=== PATIENT | female | born 1950 | race Caucasian/White ===

== ENCOUNTER 2022-09-14 20:20 | Emergency (ER) | payer MEDICARE, OTHER ==
[~2022-09-14] VITALS: Ht 172 cm; Wt 79.0 kg
--- NOTE | 2022-09-14 20:41 | ED Chest Pain ---
General Chief Complaint: Chest Pain Stated Complaint: CHEST DISCOMFORT Source: patient Exam Limitations: no limitations History of Present Illness Date Seen by Provider: Sep 14, 2022 Time Seen by Provider: 20:29 Initial Comments Patient is a 72-year-old female who presents to the emergency department with a chief complaint of chest "discomfort" she points to the midsternal area. She denies any associated symptoms such as sweating, shortness of breath and nausea. The pain does not radiate. She was at rest at symptom onset. She states that she had a stress test about a year ago that was "normal". She does take medicine for hypertension and hypercholesterolemia. She is a non-smoker. No first-degree family relatives with early coronary disease. Nothing made the pain any worse, time has made it better to the point at which at this exam it is basically gone. She denies any recent trauma, illnesses. No fevers, congestion/URI symptoms. No cough. No abdominal pain. No extremity numbness, weakness tingling or swelling. She did take 2 full-strength aspirin prior to arrival. Onset of pain was between 530 and 6 PM. All other review of systems reviewed and negative except as stated. Timing/Duration: 1-3 hours (3h) Severity/Quality: mild, other ("discomfort") Location: substernal Radiation: no radiation Activities at Onset: rest Prior CP/Workup: stress test ASA po TREE FALLER: Yes NTG SL TREE FALLER: No Associated Symptoms: fatigue ("tired") Allergies and Home Medications Allergies Coded Allergies: nitrofurantoin (Unverified Allergy, Unknown, 09/14/22) Patient Home Medication List Home Medication List Reviewed: Yes Review of Systems Review of Systems Constitutional: see HPI EENTM: No Symptoms Reported Respiratory: No Symptoms Reported Cardiovascular: Chest Pain Gastrointestinal: No Symptoms Reported Genitourinary: No Symptoms Reported Musculoskeletal: no symptoms reported Skin: no symptoms reported Psychiatric/Neurological: No Symptoms Reported Endocrine: No Symptoms Reported All Other Systems Reviewed Negative Unless Noted: Yes Past Mfnzotk-Cowtch-Wcnwtp Hx Patient Social History Tobacco Use?: No Use of E-Cig and/or Vaping dev: No Substance use?: No Alcohol Use?: No Pt feels they are or have been: No Physical Exam Vital Signs Vital Signs - First Documented 09/14/22 20:21 Temp 36.9 Pulse 68 Resp 16 B/P (MAP) 141/66 (91) Pulse Ox 98 O2 Delivery Room Air Capillary Refill : Less Than 3 Seconds Height, Weight, BMI Height: '" Weight: lbs. oz. kg; BMI Method: General Appearance: No Apparent Distress, WD/WN HEENT: PERRL/EOMI Neck: Full Range of Motion, Normal Inspection Respiratory: Lungs Clear, Normal Breath Sounds, No Accessory Muscle Use, No Respiratory Distress Cardiovascular: Regular Rate, Rhythm, Normal Peripheral Pulses Gastrointestinal: Normal Bowel Sounds, Non Tender, Soft Extremity: Normal Inspection, Normal Range of Motion, Non Tender, No Calf Tenderness, No Pedal Edema Neurologic/Psychiatric: Alert, Oriented x3, No Motor/Sensory Deficits, Normal Mood/Affect, home care giver II-XII Norm as Tested Skin: Normal Color, Warm/Dry Progress/Results/Core Measures Results/Orders Lab Results Laboratory Tests Test 09/14/22 20:32 Range/Units White Blood Count 7.9 4.3-11.0 10^3/uL Red Blood Count 4.40 3.80-5.11 10^6/uL Hemoglobin 12.5 11.5-16.0 g/dL Hematocrit 38 35-52 % Mean Corpuscular Volume 86 80-99 fL Mean Corpuscular Hemoglobin 28 25-34 pg Mean Corpuscular Hemoglobin Concent 33 32-36 g/dL Red Cell Distribution Width 12.8 10.0-14.5 % Platelet Count 242 130-400 10^3/uL Mean Platelet Volume 9.2 9.0-12.2 fL Immature Granulocyte % (Auto) 0 % Neutrophils (%) (Auto) 51 42-75 % Lymphocytes (%) (Auto) 32 12-44 % Monocytes (%) (Auto) 12 0-12 % Eosinophils (%) (Auto) 5 0-10 % Basophils (%) (Auto) 1 0-10 % Neutrophils # (Auto) 4.0 1.8-7.8 10^3/uL Lymphocytes # (Auto) 2.5 1.0-4.0 10^3/uL Monocytes # (Auto) 0.9 0.0-1.0 10^3/uL Eosinophils # (Auto) 0.4 H 0.0-0.3 10^3/uL Basophils # (Auto) 0.1 0.0-0.1 10^3/uL Immature Granulocyte # (Auto) 0.0 0.0-0.1 10^3/uL Prothrombin Time 12.7 12.2-14.7 SEC INR Comment 0.9 0.8-1.4 Activated Partial Thromboplast Time 34 24-35 SEC Sodium Level 142 135-145 MMOL/L Potassium Level 4.0 3.6-5.0 MMOL/L Chloride Level 107 98-107 MMOL/L Carbon Dioxide Level 21 21-32 MMOL/L Anion Gap 14 5-14 MMOL/L Blood Urea Nitrogen 18 7-18 MG/DL Creatinine 0.80 0.60-1.30 MG/DL Estimat Glomerular Filtration Rate 79 BUN/Creatinine Ratio 23 Glucose Level 104 70-105 MG/DL Calcium Level 9.3 8.5-10.1 MG/DL Corrected Calcium 9.1 8.5-10.1 MG/DL Magnesium Level 2.2 1.6-2.4 MG/DL Total Bilirubin 0.6 0.1-1.0 MG/DL Aspartate Amino Transf (AST/SGOT) 18 5-34 U/L Alanine Aminotransferase (ALT/SGPT) 20 0-55 U/L Alkaline Phosphatase 118 40-136 U/L Troponin I < 0.028 <0.028 NG/ML Total Protein 7.5 6.4-8.2 GM/DL Albumin 4.2 3.2-4.5 GM/DL My Orders Orders - SANTOS HENDERSON MD Ekg Tracing (09/14/22 20:24) Cbc With Automated Diff (09/14/22 20:41) Magnesium (09/14/22 20:41) Chest 1 View, Ap/Pa Only (09/14/22 20:41) Comprehensive Metabolic Panel (09/14/22 20:41) Protime With Inr (09/14/22 20:41) Partial Thromboplastin Time (09/14/22 20:41) O2 (09/14/22 20:41) Monitor-Rhythm Ecg Trace Only (09/14/22 20:41) Ed Iv/Invasive Line Start (09/14/22 20:41) Troponin I Evita (09/14/22 20:41) Vital Signs/I&O 09/14/22 20:21 Temp 36.9 Pulse 68 Resp 16 B/P (MAP) 141/66 (91) Pulse Ox 98 O2 Delivery Room Air Progress Progress Note : Time: 21:29 Progress Note Patient seen and evaluated by me, 72-year-old with chest "discomfort". Evaluation today included physical exam, EKG, single view chest x-ray, CBC, Chem-12 with magnesium level, coags and troponin. Differential diagnosis includes ACS, GERD, PE. Based on history and physical exam and results low clinical suspicion for ACS, PE. Her EKG is normal sinus rhythm at [address] segment change. Chest x-ray is reviewed, unremarkable for infiltrate, effusion, widened mediastinum, bony abnormality. CBC is normal, chemistry including cardiac enzymes and coags are all normal. Patient would be heart score of 2 for risk factors. This puts her at low risk of Mace. As she has had discomfort for ongoing 3 hours and it is resolved with a normal work-up the patient is safe for discharged home. I have discussed the results with the patient and her who is at the bedside. She verbalized understanding and agreement with the plan of care. Return precautions are provided. Encouraged follow-up with her primary care provider. All questions are sought and answered. Patient stable for discharge Initial ECG Impression Date: Sep 14, 2022 Initial ECG Impression Time: 20:26 Initial ECG Rate: 75 Initial ECG Rhythm: Normal Sinus Initial ECG Intervals: Normal Initial ECG Impression: Normal Diagnostic Imaging Diagonstic Imaging: Xray Plain Films/CT/US/NM/MRI: chest Comments [facility]. [employer], [place] NAME: TENA JAMES [facility] REC#: [id number] PT STATUS: REG ER : 1950 PHYSICIAN: SANTOS HENDERSON MD ADMIT DATE: 09/14/22/ER Draft Date of Exam:09/14/22 CHEST 1 VIEW, AP/PA ONLY INDICATION: Chest pain. TECHNIQUE: Single view chest 8:43 PM. CORRELATION STUDY: None FINDINGS: The heart size, mediastinal configuration and pulmonary vascularity are within normal limits. The lungs are clear with no consolidating infiltrate. There is no significant effusion or pneumothorax. IMPRESSION: 1. Negative appearing single view chest. Dictated on workstation # [id number] Dict: 09/14/222103 Trans: 09/14/222104 DO [id number] Interpreted by: KARLI COTTO DO Electronically signed by: Departure Impression Primary Impression: Chest pain Qualified Codes: R07.9 - Chest pain, unspecified Disposition: 01 HOME, SELF-CARE Condition: Improved Departure-Patient Inst. Decision time for Depature: 21:32 Referrals: NO,LOCAL PHYSICIAN (PCP/Family) Primary Care Physician Patient Instructions: Chest Pain That Is Not Caused by the Heart (DC) Add. Discharge Instructions: Continue your daily medications as prescribed. If you have a return of chest pain especially with exertion and pain that has shortness of breath, nausea, sweating or radiating pain to the jaw, back, arms please return to the emergency room for reevaluation. Please follow-up with your primary care provider for further evaluation and work up as needed. SANTOS HENDERSON MD Sep 14, 2022 20:41
[2022-09-14 20:46] LABS: BASOPHILS # (AUTO) 0.1 10^3/uL (0.0-0.1); BASOPHILS % (AUTO) 1 % (0-10); EOSINOPHILS # (AUTO) 0.4 10^3/uL (0.0-0.3); EOSINOPHILS % (AUTO) 5 % (0-10); HEMATOCRIT 38 % (35-52); HEMOGLOBIN 12.5 g/dL (11.5-16.0); LYMPHOCYTES # (AUTO) 2.5 10^3/uL (1.0-4.0); LYMPHOCYTES % (AUTO) 32 % (12-44); MEAN CORPUSCULAR HEMOGLOBIN 28 pg (25-34); MEAN CORPUSCULAR HGB CONC 33 g/dL (32-36); MEAN CORPUSCULAR VOLUME 86 fL (80-99); MEAN PLATELET VOLUME 9.2 fL (9.0-12.2); MONOCYTES # (AUTO) 0.9 10^3/uL (0.0-1.0); MONOCYTES % (AUTO) 12 % (0-12); NEUTROPHILS % (AUTO) 51 % (42-75); PLATELET COUNT 242 10^3/uL (130-400); WHITE BLOOD COUNT 7.9 10^3/uL (4.3-11.0)
[2022-09-14 21:00] LABS: ALBUMIN 4.2 GM/DL (3.2-4.5)
[2022-09-14 21:01] LABS: CALCIUM 9.3 MG/DL (8.5-10.1)
[2022-09-14 21:03] LABS: TOTAL PROTEIN 7.5 GM/DL (6.4-8.2)
[2022-09-14 21:05] LABS: BILIRUBIN,TOTAL 0.6 MG/DL (0.1-1.0)
--- NOTE | 2022-09-14 21:05 | Diagnostic Imaging Report ---
INDICATION: Chest pain. TECHNIQUE: Single view chest 8:43 PM. CORRELATION STUDY: None FINDINGS: The heart size, mediastinal configuration and pulmonary vascularity are within normal limits. The lungs are clear with no consolidating infiltrate. There is no significant effusion or pneumothorax. IMPRESSION: 1. Negative appearing single view chest. Dictated by: Dictated on workstation # [id number]
[2022-09-14 21:06] LABS: INR 0.9 (0.8-1.4); PROTHROMBIN TIME PATIENT 12.7 SEC (12.2-14.7)
[2022-09-14 21:07] LABS: CREATININE SERUM 0.8 MG/DL (0.60-1.30)
[2022-09-14 21:09] LABS: MAGNESIUM 2.2 MG/DL (1.6-2.4)
[2022-09-14 21:53] VITALS: BP 136/76
== END 2022-09-14 21:53 | disposition home or self-care (01) ==
LOC: EDUNIT# 20:20 → ER 20:23
DX: R07.2 Precordial pain (principal)
CPT/HCPCS: 36415; 71045; 80053; 83735; 84484; 85025; 85610; 85730; 93005; 93041